=== PATIENT | female | born 1985 | race Caucasian/White ===

== ENCOUNTER 2016-08-23 06:52 | Emergency (ER) | payer OTHER ==
[~2016-08-23] VITALS: Ht 165.1 cm; Wt 65.8 kg
[~2016-08-23 06:52] MED LIST: DOCUSATE SODIU100 MG PO; IBUPROFEN800 MG PO
[2016-08-23 06:58] VITALS: BP 111/71
[2016-08-23] MEDS ORDERED: LEXAPRO5 M1 PO (07:01)
--- NOTE | 2016-08-23 07:11 | ED THROAT/DENTAL COMPLAINT ---
History of Present Illness General Chief Complaint: General Adult Stated Complaint: "SORE THROAT, CHILLS/BODY ACHES" Source: patient, old records Exam Limitations: no limitations Vital Signs & Intake/Output Vital Signs & Intake/Output Vital Signs Date Time Temp Pulse Resp B/P B/P Pulse O2 O2 Flow FiO2 Mean Ox Delivery Rate 08/23 0713 98 Room Air 08/23 0658 97.5 80 16 111/71 99 Room Air Allergies Coded Allergies: MDX - PCN (penicillin) (PCN (PENICILLIN)) (Intermediate, RASH 09/15/13) MDX - Penicillin (08/11/16) Uncoded Allergies: Allergy Other (08/11/16) DENIES Food Allergies (08/11/16) N Med Allergies (08/11/16) PENICILLIN-RASH Reconcile Medications Azithromycin (Zithromax) 250 MG TABLET 1 TAB PO DAILY pharyngitis Docusate Sodium 100 MG SGL 100 MG PO BID PRN STOOL SOFTENER Escitalopram Oxalate (Lexapro) 5 MG TABLET 1 TAB PO DAILY DEPRESSION ( Reported) Ibuprofen 600 MG TABLET 1 TAB PO Q6PRN PRN pain with food Ibuprofen 800 MG TABLET 800 MG PO Q6P PRN PAIN SCALE 4-6 [Magic mouthwash] 5-10 ML PO Q4P PRN throat pain 1:1:1 viscous lidocaine, Maalox: benadryl Prednisone 20 MG TABLET 1 TAB PO BID pharyngitis Triage Note: PT STATES THAT SHE HAS HAD A SORE THROAT SINCE SUNDAY THIS AM WORSE AND INTERMITTANT FEVERS Triage Nurses Notes Reviewed? yes Onset: 2 days Duration: day(s): Timing: recent history Severity: moderate No Modifying Factors: none Associated Symptoms: cough LMP (ages 10-50): unknown : No Patient currently breastfeeds: No HPI: Last week patient was exposed to strep + contact. 2 days [employer] she complains of sore throat congestion non productive cough chills. She denies fever chest pain shortness of breath nausea vomiting diarrhea abdominal pain headache dysuria rash bleeding. Past History Travel History Traveled to [place] past 21 day No Medical History Any Pertinent Medical History? none Neurological: NONE EENT: NONE Cardiovascular: NONE Respiratory: NONE Gastrointestinal: NONE Hepatic: NONE Renal: NONE Musculoskeletal: NONE Psychiatric: NONE Endocrine: NONE Blood Disorders: NONE Cancer(s): NONE [employer]ESS [employer]/Reproductive: NONE Surgical History Surgical History: non-contributory Psychosocial History What is your primary language Taiwanese Tobacco Use: Never used ETOH Use: denies use Illicit Drug Use: denies illicit drug use Family History Hx Contributory? No Review of Systems Review of Systems Constitutional: Reports: see HPI, weakness. EENTM: Reports: see HPI, nasal congestion, throat pain. Respiratory: Reports: see HPI, cough. Denies: sputum production. Cardiovascular: Reports: no symptoms. GI: Reports: no symptoms. Genitourinary: Reports: no symptoms. Musculoskeletal: Reports: no symptoms. Skin: Reports: no symptoms. Neurological/Psychological: Reports: no symptoms. Hematologic/Endocrine: Reports: no symptoms. Immunologic/Allergic: Reports: no symptoms. All Other Systems: Reviewed and Negative Physical Exam Physical Exam General Appearance: well developed/nourished, alert, awake, anxious, mild distress Head: atraumatic, normal appearance Eyes: Bilateral: normal appearance, PERRL, EOMI. Ears: Bilateral: canal normal, Tympanic normal. Nose: discharge Mouth/Throat: pharynx swelling, pharynx tenderness Neck: normal inspection, supple, full range of motion, trachea midline, lymphadenopathy (R), lymphadenopathy (L) Cardiovascular/Respiratory: normal breath sounds, normal peripheral pulses Back: normal inspection, normal range of motion Neurologic/Psych: no motor/sensory deficits, awake, alert, oriented x 3, normal gait, normal mood/affect Skin: intact, normal color, warm/dry Core Measures ACS in differential dx? No Severe Sepsis Present: No Septic Shock Present: No Progress Differential Diagnosis: devendra-tonsillar abscess, stomatitis/gingivitis, strep pharyngitis Plan of Care: Orders Procedure Date/time Status THROAT CULTURE W/QUICK STREP 08/23 0655 Active Departure Departure Time of Disposition: 710 Disposition: HOME OR SELF CARE Condition: Stable Clinical Impression Primary Impression: Pharyngitis Referrals: GRACY HALLMAN MD Departure Forms: Customer Survey General Discharge Information Prescriptions: Current Visit Scripts Azithromycin (Zithromax) 1 TAB PO DAILY #4 TAB Prednisone 1 TAB PO BID #10 TAB Ibuprofen 1 TAB PO Q6PRN PRN pain #50 TAB with food [Magic mouthwash] 5-10 ML PO Q4P PRN throat pain #240 ML 1:1:1 viscous lidocaine, Maalox: benadryl
[2016-08-23] MEDS ORDERED: ZITHROMAX250 M2 PO (07:22)
[2016-08-23] MEDS ORDERED: IBUPROFEN600 M1 PO (07:22)
[2016-08-23] MEDS ORDERED: Magic mouthwash PO (07:22)
[2016-08-23] MEDS ORDERED: PREDNISONE20 M1 PO (07:22)
== END 2016-08-23 07:29 ==
LOC: ERH 06:52
DX: J02.9 Acute pharyngitis, unspecified (principal)